=== PATIENT | female | born 1955 | race Two or more races ===

== ENCOUNTER 2023-12-22 10:54 | Inpatient (IN) | payer OTHER ==
[~2023-12-22] VITALS: Ht 162.6 cm; Wt 81.6 kg
[~2023-12-22 10:54] MED LIST: ATORVASTATIN CA20 MG PO; ENALAPRIL MALEAT5 MG; GABAPENTIN300 M2 PO; LOSARTAN POTAS100 MG PO; METFORMIN HCL500 M4 PO; PANTOPRAZOLE SO40 MG PO; ZEGERID 40 MG C1 CAP
[2023-12-22] MEDS ORDERED: 0.9 % SODIUM CHLORIDE 1,000 ML IV STA (11:48)
[2023-12-22 13:11] LABS: CREATININE SERUM 2.23 mg/dL (0.55-1.02); GFR 21.98
[2023-12-22 13:19] LABS: HEMATOCRIT 40.4 % (36.0-45.00); HEMOGLOBIN 14.1 g/dL (12.0-15.00); MEAN CELL VOLUME 84.3 fL (80.00-100.00); MEAN CORPUSCULAR HEMOGLOBIN 29.4 pg (27.00-32.0); MEAN CORPUSCULAR HGB CONC 34.8 g/dl (32.0-36.0); PLATELET COUNT 307 K/uL (150-450); RED BLOOD COUNT 4.79 M/uL (4.00-6.00); RED CELL DISTRIBUTION WIDTH 13.4 % (11.5-14.5)
[2023-12-22 13:34] LABS: POTASSIUM 2.99 mEq/L (3.5-5.1)
[2023-12-22] MEDS ORDERED: POTASSIUM CHLORIDE/D5-0.9%NACL 1,000 ML IV ONE (13:45)
[2023-12-22 14:21] LABS: URINE APPEARANCE Turbid; URINE BILIRRUBIN Negative (NEGATIVE); URINE BLOOD Negative; URINE COLOR Dark Yellow; URINE GLUCOSE Negative (NEGATIVE); URINE LEUKOCYTE Trace; URINE NITRATE Negative; URINE PROTEIN Trace (NEGATIVE)
[2023-12-22 14:25] LABS: URINE BACTERIA 122.2 uL (0.0-1933); URINE EPITHELIAL CELLS 72.3 uL (0.0-38.8); URINE RBC 10.6 uL (0.0-20.8); URINE WBC 33.5 uL (0.0-23.2)
[2023-12-22 15:25] LABS: URINE CRYSTALS MANY /HPF; URINE MUCUS SCANT
[2023-12-22] MEDS ORDERED: 0.9 % SODIUM CHLORIDE 1,000 ML IV SCH (22:00)
[2023-12-22] MEDS ORDERED: CIPROFLOXACIN IN 5 % DEXTROSE 200 ML IV SCH (22:01)
[2023-12-22] MEDS ORDERED: DEXTROSE 50 % IN WATER 0.5 G/ML DISP.SYRIN IV PRN (22:15)
[2023-12-22] MEDS ORDERED: POTASSIUM BICARBONATE/CIT AC 25 MEQ TABLET.EFF PO ONE (22:15)
[2023-12-22] MEDS ORDERED: INSULIN LISPRO 1,000 UNIT/10 ML UNITS SUBCUTANEO PRN (22:15)
[2023-12-22] MEDS ORDERED: ONDANSETRON HCL 4 MG in 0.9 % SODIUM CHLORIDE 50 ML IV PRN (22:15)
[2023-12-22] MEDS ORDERED: ACETAMINOPHEN 500 MG GEL..CAP PO PRN (22:15)
[2023-12-23 07:11] LABS: INR 1.02; PARTIAL THROMBOPLASTIN TIME 30.2 SECONDS (22.0-34.0); PROTHROMBIN TIME 10.7 SECONDS (9.0-11.5)
[2023-12-23 08:11] LABS: CALCIUM 8.4 mg/dL (8.5-10.1); CREATININE SERUM 1.5 mg/dL (0.55-1.02); GFR 34.74; MAGNESIUM 1.9 mg/dL (1.8-2.4); PHOSPHOROUS 2.7 mg/dL (2.5-4.9); POTASSIUM 3.32 mEq/L (3.5-5.1)
[2023-12-23] MEDS ORDERED: FAMOTIDINE/PF 20 MG in 0.9 % SODIUM CHLORIDE 8 ML IV PUSH SCH (09:00)
[2023-12-23] MEDS ORDERED: ENOXAPARIN SODIUM 30 MG/0.3 ML SYRINGE SUBCUTANEO SCH (09:00)
[2023-12-23 16:01] LABS: ob NEGATIVE (NEGATIVE)
[2023-12-24 08:21] LABS: HEMATOCRIT 36.8 % (36.0-45.00); HEMOGLOBIN 12.8 g/dL (12.0-15.00); MEAN CELL VOLUME 85.5 fL (80.00-100.00); MEAN CORPUSCULAR HEMOGLOBIN 29.8 pg (27.00-32.0); MEAN CORPUSCULAR HGB CONC 34.8 g/dl (32.0-36.0); PLATELET COUNT 322 K/uL (150-450); RED CELL DISTRIBUTION WIDTH 13.3 % (11.5-14.5)
[2023-12-24 08:54] LABS: ALBUMIN 3.1 gm/dL (3.4-5.0); BILIRUBIN TOTAL 1.07 mg/dL (0.3-1.2); CALCIUM 8.5 mg/dL (8.5-10.1); GFR 55.47; GLOBULINA 3.1 G/DL (2.4-3.5); POTASSIUM 3.49 mEq/L (3.5-5.1); TOTAL PROTEIN 6.2 gm/dL (6.4-8.2)
[2023-12-24] MEDS ORDERED: RINGERS SOLUTION,LACTATED 1,000 ML IV SCH (19:00)
[2023-12-25] MEDS ORDERED: LOPERAMIDE HCL 2 MG CAPSULE PO PRN (10:00)
[2023-12-26] MEDS ORDERED: LOPERAMIDE HCL 2 MG CAPSULE PO ONE (08:15)
[2023-12-26] MEDS ORDERED: LOPERAMIDE HCL 2 MG CAPSULE PO STA (08:16)
== END 2023-12-26 13:07 | disposition home or self-care (01) | DRG 690 ==
LOC: ER 10:56 → SEC-K 22:04 → MEDJ 12-23 16:44
PROVIDERS: Emergency Medicine; General Practice; ADMIT Internal Medicine; ATTEND Internal Medicine
PROC: BW21YZZ Computerized Tomography (CT Scan) of Abdomen and Pelvis using Other Contrast (ICD-10-PCS; principal; 2023-12-22)
DX: N39.0 Urinary tract infection, site not specified (principal); N17.9 Acute kidney failure, unspecified; K52.9 Noninfective gastroenteritis and colitis, unspecified

== ENCOUNTER 2024-01-30 09:58 | Outpatient (CLI) | payer OTHER | END 2024-01-30 10:05 | disposition home or self-care (01) | LOC: SONOGRAMA 09:58 | DX: E03.9 Hypothyroidism, unspecified (principal); E04.1 Nontoxic single thyroid nodule ==

== ENCOUNTER 2024-03-17 14:36 | Emergency (ER) | payer OTHER ==
[~2024-03-17] VITALS: Ht 154.9 cm; Wt 83.9 kg
[2024-03-17] MEDS ORDERED: TRAMADOL HCL 50 MG TABLET PO ONE (16:15)
== END 2024-03-17 16:27 | disposition home or self-care (01) ==
LOC: ER 14:36
DX: M16.11 Unilateral primary osteoarthritis, right hip (principal); I10 Essential (primary) hypertension; Z79.84 Long term (current) use of oral hypoglycemic drugs; E11.9 Type 2 diabetes mellitus without complications

== ENCOUNTER 2024-05-04 15:34 | Inpatient (IN) | payer OTHER ==
[~2024-05-04] VITALS: Ht 157.5 cm; Wt 85.7 kg
[2024-05-04] MEDS ORDERED: FAMOTIDINE/PF 20 MG in 0.9 % SODIUM CHLORIDE 8 ML IV PUSH STA (16:11)
[2024-05-04] MEDS ORDERED: 0.9 % SODIUM CHLORIDE 1,000 ML IV SCH ×2 (16:15→19:45)
[2024-05-04] MEDS ORDERED: MEPERIDINE HCL/PF 50 MG/ML VIAL IM ONE (16:15)
[2024-05-04] MEDS ORDERED: ONDANSETRON HCL 2 MG/ML VIAL IV ONE (16:15)
[2024-05-04 16:46] LABS: HEMATOCRIT 42.4 % (36.0-45.00); HEMOGLOBIN 13.8 g/dL (12.0-15.00); MEAN CELL VOLUME 87.2 fL (80.00-100.00); MEAN CORPUSCULAR HEMOGLOBIN 28.4 pg (27.00-32.0); MEAN CORPUSCULAR HGB CONC 32.6 g/dl (32.0-36.0); PLATELET COUNT 378 K/uL (150-450); RED BLOOD COUNT 4.86 M/uL (4.00-6.00); RED CELL DISTRIBUTION WIDTH 14.1 % (11.5-14.5)
[2024-05-04 18:49] LABS: ALBUMIN 3.4 gm/dL (3.4-5.0); BILIRUBIN TOTAL 1.39 mg/dL (0.3-1.2); BILIRUBIN,CONJUGATED 0.76 mg/dL (0.0-0.2); BILIRUBIN,UNCONJUGATED 0.63 mg/dL (0.0-0.6); CALCIUM 9.1 mg/dL (8.5-10.1); CREATININE SERUM 1.96 mg/dL (0.55-1.02); GFR 25.52; GLOBULINA 4.4 G/DL (2.4-3.5); POTASSIUM 3.53 mEq/L (3.5-5.1); TOTAL PROTEIN 7.8 gm/dL (6.4-8.2)
[2024-05-04] MEDS ORDERED: MORPHINE SULFATE 2 MG/ML CARTRIDGE IV PRN (19:45)
[2024-05-04] MEDS ORDERED: INSULIN LISPRO 1,000 UNIT/10 ML UNITS SUBCUTANEO PRN (19:45)
[2024-05-04] MEDS ORDERED: ONDANSETRON HCL 4 MG in 0.9 % SODIUM CHLORIDE 50 ML IV PRN (19:45)
[2024-05-04] MEDS ORDERED: DEXTROSE 50 % IN WATER 0.5 G/ML DISP.SYRIN IV PRN (19:45)
[2024-05-04] MEDS ORDERED: LOSARTAN POTASSIUM 100 MG TABLET PO SCH (19:54)
[2024-05-04 20:12] LABS: PH,URINE 5.5 (5.0-8.0); URINE APPEARANCE Clear; URINE BILIRRUBIN Negative (NEGATIVE); URINE BLOOD Negative; URINE COLOR Yellow; URINE GLUCOSE Negative (NEGATIVE); URINE KETONE Trace (NEGATIVE); URINE LEUKOCYTE Negative; URINE NITRATE Negative; URINE PROTEIN Negative (NEGATIVE)
[2024-05-04 20:16] LABS: URINE BACTERIA 32.7 uL (0.0-1933); URINE CAST 3.35 uL (0.0-1.40); URINE EPITHELIAL CELLS 17.5 uL (0.0-38.8); URINE RBC 3.3 uL (0.0-20.8)
[2024-05-04] MEDS ORDERED: CIPROFLOXACIN IN 5 % DEXTROSE 200 ML IV SCH (21:00)
[2024-05-04 21:48] VITALS: BP 177/83; O2SAT 97
[2024-05-04 22:26] LABS: ALBUMIN 3.2 gm/dL (3.4-5.0); CALCIUM 8.8 mg/dL (8.5-10.1); CREATININE SERUM 1.73 mg/dL (0.55-1.02); GFR 29.47; PHOSPHOROUS 3.7 mg/dL (2.5-4.9); POTASSIUM 3.41 mEq/L (3.5-5.1)
[2024-05-05 00:38] VITALS: BP 130/81; O2SAT 98
[2024-05-05 09:46] VITALS: BP 138/84; O2SAT 97
[2024-05-05 18:36] VITALS: BP 145/76; O2SAT 95
[2024-05-06 00:24] VITALS: BP 123/64
[2024-05-06 13:22] VITALS: BP 124/77
[2024-05-06 18:56] VITALS: BP 144/83; O2SAT 97
[2024-05-06 22:59] LABS: ALBUMIN 3.2 gm/dL (3.4-5.0); BILIRUBIN TOTAL 0.76 mg/dL (0.3-1.2); CALCIUM 8.4 mg/dL (8.5-10.1); CREATININE SERUM 0.77 mg/dL (0.55-1.02); GLOBULINA 3.2 G/DL (2.4-3.5); POTASSIUM 3.64 mEq/L (3.5-5.1); TOTAL PROTEIN 6.4 gm/dL (6.4-8.2)
[2024-05-07 00:49] VITALS: BP 156/65
[2024-05-07] MEDS ORDERED: ENALAPRIL MALEATE 5 MG TABLET PO SCH (09:00)
[2024-05-07 10:45] VITALS: BP 156/85; O2SAT 97
[2024-05-07] MEDS ORDERED: METHYLPREDNISOLONE SOD SUCC 40 MG VIAL IV ONE (11:15)
[2024-05-07] MEDS ORDERED: DIPHENHYDRAMINE HCL 50 MG/ML VIAL 1ML IV ONE (11:15)
[2024-05-07 17:08] LABS: HEMATOCRIT 40.6 % (36.0-45.00); HEMOGLOBIN 13.9 g/dL (12.0-15.00); MEAN CELL VOLUME 85.2 fL (80.00-100.00); MEAN CORPUSCULAR HEMOGLOBIN 29.2 pg (27.00-32.0); MEAN CORPUSCULAR HGB CONC 34.3 g/dl (32.0-36.0); PLATELET COUNT 392 K/uL (150-450); RED BLOOD COUNT 4.76 M/uL (4.00-6.00); RED CELL DISTRIBUTION WIDTH 14.2 % (11.5-14.5)
[2024-05-07 17:36] LABS: ALBUMIN 3.3 gm/dL (3.4-5.0); BILIRUBIN TOTAL 0.68 mg/dL (0.3-1.2); CALCIUM 9.3 mg/dL (8.5-10.1); CREATININE SERUM 1.1 mg/dL (0.55-1.02); GFR 49.69; GLOBULINA 3.7 G/DL (2.4-3.5); POTASSIUM 3.55 mEq/L (3.5-5.1)
[2024-05-07 18:18] VITALS: BP 147/73
[2024-05-08 03:35] VITALS: BP 141/78; O2SAT 95
[2024-05-08 08:40] VITALS: BP 140/65; O2SAT 98
== END 2024-05-08 11:32 | disposition home or self-care (01) | DRG 684 ==
LOC: ER 15:34 → SEC-K 21:39 → MEDJ 21:39 → MEDI 23:17 → MEDJ 23:18
PROVIDERS: General Practice; ADMIT Internal Medicine; ATTEND Internal Medicine
PROC: BW21ZZZ Computerized Tomography (CT Scan) of Abdomen and Pelvis (ICD-10-PCS; principal; 2024-05-04)
PROC: BF37ZZZ Magnetic Resonance Imaging (MRI) of Pancreas (ICD-10-PCS; 2024-05-04)
PROC: BB24Y0Z Computerized Tomography (CT Scan) of Bilateral Lungs using Other Contrast, Unenhanced and Enhanced (ICD-10-PCS; 2024-05-07)
DX: N17.8 Other acute kidney failure (principal); I10 Essential (primary) hypertension; R74.01 Elevation of levels of liver transaminase levels; E11.9 Type 2 diabetes mellitus without complications; Z79.4 Long term (current) use of insulin; R91.8 Other nonspecific abnormal finding of lung field

== ENCOUNTER 2024-08-16 11:27 | Outpatient (CLI) | payer OTHER | END 2024-08-16 12:00 | disposition home or self-care (01) | LOC: SONOGRAMA 11:27 | DX: M17.0 Bilateral primary osteoarthritis of knee (principal); M25.561 Pain in right knee; M75.101 Unspecified rotator cuff tear or rupture of right shoulder, not specified as traumatic; M25.511 Pain in right shoulder ==

== ENCOUNTER 2024-08-22 12:03 | Outpatient (CLI) | payer OTHER | END 2024-08-22 12:06 | disposition home or self-care (01) | LOC: MAMO-SONO 12:03 | PROVIDERS: ATTEND Obstetrics & Gynecology | DX: N60.11 Diffuse cystic mastopathy of right breast (principal); N60.12 Diffuse cystic mastopathy of left breast; Z12.31 Encounter for screening mammogram for malignant neoplasm of breast ==

== ENCOUNTER 2025-05-24 06:48 | Emergency (ER) | payer OTHER ==
[~2025-05-24] VITALS: Ht 157.5 cm; Wt 84.8 kg
[2025-05-24] MEDS ORDERED: OZEMPIC1 MG/0.71 SQ (07:44)
[2025-05-24 09:18] LABS: COVID-19 AG NEGATIVE (NEGATIVE)
[2025-05-24 09:37] LABS: BASO % 0.2 % (0.1-1.2); EOS # 0.01 (0.04-0.54); EOS % 0.2 % (0.7-7.0); LYMPH # 0.37 (1.18-3.74); LYMPH % 7.0 % (19.3-53.1); MEAN PLATELET VOLUME 10.40 fl (9.4-12.4); MONO # 0.81 (0.24-0.82); NEUT # 4.05 (1.56-6.13); NEUT % 76.8 % (34.0-71.1); RED CELL DISTRIBUTION WIDTH 14.0 % (11.6-14.4)
[2025-05-24 09:41] LABS: MONO % 15.4 % (4.7-12.5)
[2025-05-24] MEDS ORDERED: GILTUSS DIABET118 ML PO (10:26)
[2025-05-24] MEDS ORDERED: OSEL75CA PO (10:26)
[2025-05-24] MEDS ORDERED: ACETAMINOPHEN500 M1 PO (10:26)
[2025-05-24] MEDS ORDERED: OSELTAMIVIR PHOSPHATE 75 MG CAPSULE PO ONE ×2 (10:45→10:59)
== END 2025-05-24 11:14 | disposition home or self-care (01) ==
LOC: ER 06:49
PROVIDERS: Preventive Medicine Public Health & General Preventive Medicine
DX: J10.1 Influenza due to other identified influenza virus with other respiratory manifestations (principal); B34.9 Viral infection, unspecified; Z88.0 Allergy status to penicillin; I10 Essential (primary) hypertension; Z20.822 Contact with and (suspected) exposure to COVID-19; Z91.018 Allergy to other foods; E11.9 Type 2 diabetes mellitus without complications; Z79.4 Long term (current) use of insulin